=== PATIENT | male | born 1975 | race Caucasian/White ===

== ENCOUNTER 2017-02-18 11:36 | Emergency (ER) | payer OTHER ==
--- NOTE | ~2017-02-18 | CT2 ---
[facility] A Service [facility] RADIOLOGY TEXT RESULTS PATIENT: LISSETTE FORDE LOCATION: SED : 73 UNIT #: [id number] AGE: [address]: Adelfo Rosas MD SEX: M ORDER DR: [id number] [place] [id number] E MR#: [id number] Acc #: [id number] NAME: LISSETTE FORDE : 1975 SEX: M STUDY DATE/TIME: 02/18/2017 13:43 UNIT: SED ROOM: STUDY DESCRIPTION: CT Abd and Pelv W Cont Attending Physician: Adelfo Rosas M.D. Ordering Physician: Physician Non-Staff Primary Care Physician: No Primary Care Physician MEDICAL IMAGING REPORT This report is preliminary unless electronic signature is present. EXAM CT abdomen and pelvis with contrast INDICATIONS Lower abdominal pain for the past 2 days. PROCEDURE Contrast-enhanced CT of the abdomen and pelvis. This CT exam was performed with one or more of the following radiation dose reduction techniques: automatic exposure control, adjustment of mA and/or kV according to patient size, and iterative reconstruction. COMPARISON STUDIES None FINDINGS ABDOMEN WITH CONTRAST: Included lung bases clear. Liver enlarged measuring 21.7 cm. Probable mild steatosis. Spleen, kidneys, adrenal glands, pancreas, gallbladder unremarkable. Bowel loops are nondilated. Scattered diverticula throughout the colon. There is focal acute diverticulitis in the mid descending colon. No evidence for abscess. There is also focal acute diverticulitis at the hepatic flexure, with no evidence for abscess. Appendix is normal. PELVIS WITH CONTRAST: No pelvic mass or fluid. No aggressive appearing bone lesion. IMPRESSION 1. Colonic diverticulosis. 2. Focal acute diverticulitis in the mid descending colon and hepatic STS. [facility] A Service of [facility] RADIOLOGY TEXT RESULTS PATIENT: LISSETTE FORDE LOCATION: SED : 73 UNIT #: [id number] AGE: [address]: Adelfo Rosas MD SEX: M ORDER DR: flexdeb. No evidence for abscess. 3. Hepatomegaly with likely steatosis. 1. Dictated by... Saad Barajas M.D. THIS IS AN ELECTRONICALLY VERIFIED REPORT Saad Barajas M.D. at 02/19/2017 10:08 AM Connor TD: 02/18/2017 15:49 JOB #: [id number] MEDICAL IMAGING REPORT Page 1 of 1
[2017-02-18] MEDS ORDERED: QBRELIS1 MG/1 ML (11:40)
[2017-02-18 12:14] LABS: BASOPHIL# 0.1 X10e3 (0-0.3); BASOPHIL% 0.7 % (0-2.5); EOSINOPHIL# 0.3 X10e3 (0-0.7); EOSINOPHIL% 2.2 % (0.0-7.0); HEMATOCRIT 46.1 % (38.0-50.0); LYMPHOCYTE# 2.1 X10e3 (1.0-3.5); LYMPHOCYTE% 17.9 % (17.0-45.0); MEAN CELL VOLUME 90.8 FL (83-96); MEAN CORPUSCULAR HEMOGLOBIN 31.5 PG (28-34); MEAN CORPUSCULAR HGB CONC 34.7 g/dL (30-36); MEAN PLATELET VOLUME 8.1 FL (6.5-11.5); MONOCYTE# 0.9 X10e3 (0-1.0); MONOCYTE% 7.9 % (3.0-12.0); NEUTROPHIL# 8.4 X10e3 (1.5-7.1); NEUTROPHIL% 71.3 % (40-75); PLATELET COUNT 241 X10e3 (140-420); RED BLOOD COUNT 5.08 X10e (3.90-5.60); RED CELL DISTRIBUTION WIDTH 13.2 % (11.0-15.5); WHITE BLOOD COUNT 11.8 X10e3 (4.0-10.5)
[2017-02-18 12:15] LABS: DIFF IND NO
[2017-02-18 12:33] LABS: ALBUMIN SERUM 4.8 g/dL (3.5-5.0); BILIRUBIN, DIRECT 0.1 mg/dL (0.0-0.2); BILIRUBIN,INDIRECT 1.2 mg/dL (0.0-0.9); BILIRUBIN,TOTAL 1.3 mg/dL (0.2-2.0); BUN/CREATININE RATIO 14.54; CALCIUM SERUM 8.9 mg/dL (8.4-10.2); CREATININE SERUM 1.1 mg/dL (0.6-1.4); GLOM FILT RATE Estimated 82.4 mL/min (>60); POTASSIUM 3.8 mmol/L (3.5-5.1)
[2017-02-18 12:39] LABS: URINE SOURCE CLEAN CATCH
[2017-02-18 12:41] LABS: URINE APPEARANCE CLEAR; URINE BILIRUBIN NEG (NEG); URINE BLOOD TRACE-INTACT (NEG); URINE COLOR YELLOW; URINE GLUCOSE NEG (NORM); URINE KETONE NEG (NEG); URINE LEUKOCYTE ESTERASE NEG (NEG); URINE NITRATE NEG (NEG); URINE PROTEIN NEG (NEG); URINE SPECIFIC GRAVITY >=1.030 (1.003-1.035); URINE UROBILINOGEN 0.2 MG/DL (NORM)
[2017-02-18 12:43] LABS: MICRO INDICATED? YES
[2017-02-18 12:51] LABS: CULTURE INDICATED? NO; URINE BACTERIA NEG (NEG); URINE RBC 0-2 /[HPF] (0-2); URINE WBC 0-2 /[HPF] (0-5)
== END 2017-02-18 14:46 | disposition home or self-care (01) ==
LOC: SED 11:36
PROVIDERS: Physician Assistant
DX: K57.32 Diverticulitis of large intestine without perforation or abscess without bleeding (principal); Z88.0 Allergy status to penicillin
CPT/HCPCS: 36415; 74177; 80048; 80076; 81003; 82150; 83690; 85025; 96361; 96374; 99284; J1885; Q9967